=== PATIENT | female | born 1990 | race African-American/Black ===

== ENCOUNTER 2018-04-03 00:40 | Emergency (ER) | payer OTHER ==
[~2018-04-03] VITALS: Ht 162.6 cm; Wt 65.8 kg
[~2018-04-03 00:40] MED LIST: AMOXICILLIN 50500 M1 PO; HYDROCODONE-APA15 ML PO; IBUPROFEN 200200 M1 PO; IBUPROFEN 600600 M1 PO
[2018-04-03] MEDS ORDERED: AMITRIPTYLINE H25 M2 PO (01:10)
[2018-04-03] MEDS ORDERED: NAPROSYN500 MG PO (02:20)
[2018-04-03] MEDS ORDERED: BUTALB-APAP-CA1 EACH PO (02:20)
[2018-04-03 03:51] VITALS: BP 116/79
== END 2018-04-03 03:52 | disposition home or self-care (01) ==
LOC: ER 00:40
DX: S09.90XA Unspecified injury of head, initial encounter (principal); S16.1XXA Strain of muscle, fascia and tendon at neck level, initial encounter; G43.909 Migraine, unspecified, not intractable, without status migrainosus; V49.09XA Driver injured in collision with other motor vehicles in nontraffic accident, initial encounter; Y93.89 Activity, other specified; Y92.89 Other specified places as the place of occurrence of the external cause; Y99.8 Other external cause status

== ENCOUNTER 2018-07-05 17:51 | Emergency (ER) | payer OTHER ==
[~2018-07-05] VITALS: Ht 162.6 cm; Wt 68.0 kg
[~2018-07-05 17:51] MED LIST changes: +AMITRIPTYLINE H25 M2 PO; +BUTALB-APAP-CA1 EACH PO; +NAPROSYN500 MG PO
[2018-07-05 20:03] LABS: CALCIUM 9.3 mg/dL (8.5-10.1); CREATININE 0.9 mg/dL (0.6-1.0); POTASSIUM 3.5 mmol/L (3.5-5.1)
[2018-07-05] MEDS ORDERED: ULTRAM 50MG TAB50 MG PO (21:46)
[2018-07-05] MEDS ORDERED: NORFLEX100 MG PO (21:46)
[2018-07-05] MEDS ORDERED: IBUPROFEN 600600 M1 PO (21:46)
[2018-07-05 22:49] VITALS: BP 118/72
== END 2018-07-05 22:37 | disposition home or self-care (01) ==
LOC: ER 17:51
PROVIDERS: Emergency Medicine
DX: S10.93XA Contusion of unspecified part of neck, initial encounter (principal); S00.83XA Contusion of other part of head, initial encounter; S00.03XA Contusion of scalp, initial encounter; F17.210 Nicotine dependence, cigarettes, uncomplicated; G43.909 Migraine, unspecified, not intractable, without status migrainosus; Y04.0XXA Assault by unarmed brawl or fight, initial encounter; Y93.89 Activity, other specified; Y92.89 Other specified places as the place of occurrence of the external cause; Y99.8 Other external cause status

== ENCOUNTER 2018-08-15 17:18 | Emergency (ER) | payer OTHER ==
[~2018-08-15] VITALS: Ht 162.6 cm; Wt 68.0 kg
[~2018-08-15 17:18] MED LIST changes: +NORFLEX100 MG PO; +ULTRAM 50MG TAB50 MG PO
[2018-08-15] MEDS ORDERED: NORFLEX100 MG PO (18:00)
[2018-08-15] MEDS ORDERED: NAPROSYN500 MG PO (18:00)
[2018-08-15 18:33] VITALS: BP 121/80
== END 2018-08-15 18:32 | disposition home or self-care (01) ==
LOC: ER 17:18
DX: S16.1XXA Strain of muscle, fascia and tendon at neck level, initial encounter (principal); V89.2XXA Person injured in unspecified motor-vehicle accident, traffic, initial encounter; Y93.89 Activity, other specified; Y92.89 Other specified places as the place of occurrence of the external cause; Y99.8 Other external cause status; G43.909 Migraine, unspecified, not intractable, without status migrainosus; F17.210 Nicotine dependence, cigarettes, uncomplicated

== ENCOUNTER 2019-10-29 11:09 | Emergency (ER) | payer OTHER ==
[~2019-10-29] VITALS: Ht 162.6 cm; Wt 74.8 kg
[2019-10-29 11:31] LABS: URINE BILIRUBIN NEGATIVE (Negative); URINE BLOOD NEGATIVE (Negative); URINE CLARITY CLEAR; URINE COLOR YELLOW; URINE GLUCOSE-RANDOM* NEGATIVE (Negative); URINE KETONES NEGATIVE (Negative); URINE NITRITE-REFLEX NEGATIVE (Negative); URINE PROTEIN (DIPSTICK) NEGATIVE (Negative); URINE UROBILINOGEN 0.2 E.U./dl (0.2-1.0)
[2019-10-29 11:33] LABS: URINE LEUKOCYTES-REFLEX 1+ (Negative)
[2019-10-29 11:42] LABS: SQUAMOUS >10 Many /LPF (0-3)
[2019-10-29 11:43] LABS: BACTERIA-REFLEX 1-9 Few /HPF (None Seen); CASTS None Seen /LPF (None Seen); CRYSTALS None Seen /LPF (None Seen); URINE RBC None Seen /HPF (0-2); URINE WBC-REFLEX 6-15 Few /HPF (0-5)
[2019-10-29] MEDS ORDERED: MACROBID 100 M100 MG PO (12:45)
[2019-10-29 12:48] VITALS: BP 120/63
== END 2019-10-29 13:00 | disposition home or self-care (01) ==
LOC: ER 11:09
PROVIDERS: Emergency Medicine
DX: O23.43 Unspecified infection of urinary tract in pregnancy, third trimester (principal); G43.909 Migraine, unspecified, not intractable, without status migrainosus; F17.210 Nicotine dependence, cigarettes, uncomplicated; Z3A.34 34 weeks gestation of pregnancy

== ENCOUNTER 2020-07-22 01:25 | Emergency (ER) | payer OTHER ==
[~2020-07-22] VITALS: Ht 162.6 cm; Wt 68.0 kg
[~2020-07-22 01:25] MED LIST changes: +MACROBID 100 M100 MG PO
[2020-07-22 01:27] VITALS: BP 123/80
[2020-07-22] MEDS ORDERED: ERYTHROMYCIN E3.5 G2 OPHTHALMIC (02:21)
== END 2020-07-22 03:00 | disposition home or self-care (01) ==
LOC: ER 01:25
DX: S05.01XA Injury of conjunctiva and corneal abrasion without foreign body, right eye, initial encounter (principal); G43.909 Migraine, unspecified, not intractable, without status migrainosus; F17.210 Nicotine dependence, cigarettes, uncomplicated; Z79.1 Long term (current) use of non-steroidal anti-inflammatories (NSAID); Z79.899 Other long term (current) drug therapy; X58.XXXA Exposure to other specified factors, initial encounter; Y93.89 Activity, other specified; Y92.89 Other specified places as the place of occurrence of the external cause; Y99.8 Other external cause status

== ENCOUNTER 2021-04-18 18:08 | Emergency (ER) | payer OTHER ==
[~2021-04-18] VITALS: Ht 162.6 cm; Wt 66.2 kg
[~2021-04-18 18:08] MED LIST changes: +ERYTHROMYCIN E3.5 G2 OPHTHALMIC
[2021-04-18] MEDS ORDERED: FLEXERIL PO (18:25)
[2021-04-18] MEDS ORDERED: NORCO5 PO (19:44)
[2021-04-18 19:55] VITALS: BP 114/79
== END 2021-04-18 19:55 | disposition home or self-care (01) ==
LOC: ER 18:08
DX: M54.5 Low back pain (principal); G43.909 Migraine, unspecified, not intractable, without status migrainosus; F17.210 Nicotine dependence, cigarettes, uncomplicated; Z79.1 Long term (current) use of non-steroidal anti-inflammatories (NSAID); Z79.899 Other long term (current) drug therapy; Z88.2 Allergy status to sulfonamides; W00.0XXA Fall on same level due to ice and snow, initial encounter; Y93.89 Activity, other specified; Y92.89 Other specified places as the place of occurrence of the external cause; Y99.8 Other external cause status

== ENCOUNTER 2021-07-15 15:11 | Emergency (ER) | payer OTHER ==
[~2021-07-15] VITALS: Ht 162.6 cm; Wt 66.2 kg
[~2021-07-15 15:11] MED LIST changes: +FLEXERIL PO; +NORCO5 PO
[2021-07-15 15:27] VITALS: BP 127/90
[2021-07-15] MEDS ORDERED: MELOXICAM15 MG PO (15:31)
[2021-07-15] MEDS ORDERED: TOPIRAMATE50 MG PO (15:32)
[2021-07-15 15:53] LABS: URINE BILIRUBIN NEGATIVE (Negative); URINE BLOOD 3+ (Negative); URINE CLARITY CLEAR; URINE COLOR RED; URINE GLUCOSE-RANDOM* NEGATIVE (Negative); URINE KETONES NEGATIVE (Negative); URINE LEUKOCYTES-REFLEX NEGATIVE (Negative); URINE NITRITE-REFLEX NEGATIVE (Negative); URINE PROTEIN (DIPSTICK) NEGATIVE (Negative); URINE UROBILINOGEN 0.2 E.U./dl (0.2-1.0)
[2021-07-15 16:05] LABS: ABSOLUTE NEUTROPHILS 3.6 thou/uL (1.4-8.2); BASOPHILS 0.7 % (0.0-2.0); EOSINOPHILS 1.2 % (0.0-3.0); HEMATOCRIT 32.2 % (37.0-47.0); HEMOGLOBIN 10.3 gm/dL (12.0-15.0); LYMPHOCYTES 35.2 % (24.0-44.0); MCH 25.7 pg (26.0-34.0); MCV 80.4 fL (80.0-100.0); MONOCYTES 4.5 % (1.0-8.0); PLATELET COUNT 259 thou/uL (150-400); POLYS 58.4 % (36.0-66.0); RBC 4.01 mil/uL (4.20-5.00); RDW 16.1 % (10.5-14.5); WBC 6.2 thou/uL (4.0-11.0)
[2021-07-15 16:33] LABS: CALCIUM 8.3 mg/dL (8.5-10.1); CREATININE 0.8 mg/dL (0.6-1.0); POTASSIUM 3.7 mmol/L (3.5-5.1)
[2021-07-15 16:37] LABS: BACTERIA-REFLEX None Seen /HPF (None Seen); SQUAMOUS 0-3 Few /LPF (0-3); URINE RBC >20 Many /HPF (NONE SEEN); URINE WBC-REFLEX None Seen /HPF (0-5)
[2021-07-15] MEDS ORDERED: PROVERA10 MG PO (17:15)
== END 2021-07-15 17:40 | disposition home or self-care (01) ==
LOC: ER 15:11
PROVIDERS: Emergency Medicine
DX: N93.8 Other specified abnormal uterine and vaginal bleeding (principal); G43.909 Migraine, unspecified, not intractable, without status migrainosus; F17.210 Nicotine dependence, cigarettes, uncomplicated; Z79.1 Long term (current) use of non-steroidal anti-inflammatories (NSAID); Z79.899 Other long term (current) drug therapy; Z88.8 Allergy status to other drugs, medicaments and biological substances